=== PATIENT | male | born 1990 | race Two or more races ===

== ENCOUNTER 2019-10-18 12:31 | Emergency (ER) | payer MEDICAID ==
[~2019-10-18] VITALS: Ht 175.3 cm; Wt 99.8 kg
--- NOTE | 2019-10-18 12:56 | NUR ---
BIBS TO ER BED 6. AAOX4. NOT IN RESP DISTRESS, BREATHING EVEN AND UNLABORED. AMBULATORY. CAME IN FOR BLOOD IN THE STOOL X 3 DAYS AND VOMMITING SATARTED TODAY. PER PT, HE STARTED NOTICING THE BLOOD WHEN HE WAS WIPPING AFTER HE HAVE BM. BLOOD IS BRIGHT RED. ACCORING TO PT, HE HASNT HAD A BM TODAY THUS HAVENT NOTED ANY BLOOD TODAY. HE REPORTS NAUSEA AND VOMMITING STARTED TODAY. PT APEARS ANXIOUS. MD WAS AT BEDSIDE FOR EVAL. ORDERS RECEIVED NOTED AND CARRIED OUT. PATIENT ADMITTING CLERK WAS AT BEDSIDE FOR BLOOD DRAW.
[2019-10-18 13:02] LABS: BASOPHILS % (AUTO) 0.4 % (0.0-2.0); EOSINOPHILS % (AUTO) 0.7 % (0.0-6.0); HEMATOCRIT 48 % (39-51); LYMPHOCYTES # (AUTO) 1.5 /CMM (0.8-4.8); LYMPHOCYTES % (AUTO) 16.4 % (20.0-44.0); MEAN CORPUSCULAR HGB CONC 35 g/dl (31.0-36.0); MEAN CORPUSCULAR VOLUME 91 fL (80-96); MONOCYTES # (AUTO) 0.9 /CMM (0.1-1.30); MONOCYTES % (AUTO) 9.4 % (2.0-12.0); NEUTROPHILS # (AUTO) 6.6 /CMM (1.8-8.9); NEUTROPHILS % (AUTO) 73.1 % (43.0-81.0); PLATELET COUNT (AUTO) 265 /CMM (150-450); RED BLOOD CELL COUNT(AUTO) 5.32 MIL/uL (4.5-6.0)
[2019-10-18 13:09] LABS: CALCIUM, SERUM 9.3 mg/dL (8.5-10.1); POTASSIUM 3.6 mmol/L (3.5-5.1)
[2019-10-18 13:15] LABS: BILIRUBIN,DIRECT 0.1 mg/dL (0.0-0.2); BILIRUBIN,TOTAL 0.7 mg/dL (0.2-1.0); TOTAL PROTEIN, SERUM 7.4 g/dL (6.4-8.2)
--- NOTE | 2019-10-18 14:25 | NUR ---
Patient discharged to home in stable condition. Written and verbal after care instructions given. Patient verbalizes understanding of instruction. Pt ambulatory with a steady gait
[2019-10-18 14:28] VITALS: BP 137/92
== END 2019-10-18 14:28 | disposition home or self-care (01) ==
LOC: ER 12:35
DX: K64.8 Other hemorrhoids (principal); K29.60 Other gastritis without bleeding; R11.2 Nausea with vomiting, unspecified; J45.909 Unspecified asthma, uncomplicated; F90.9 Attention-deficit hyperactivity disorder, unspecified type; F31.9 Bipolar disorder, unspecified
CPT/HCPCS: 36415; 80048-TC; 80076-TC; 85025-TC

== ENCOUNTER 2019-11-01 13:51 | Emergency (ER) | payer MEDICAID ==
[~2019-11-01] VITALS: Ht 177.8 cm; Wt 102.1 kg
--- NOTE | 2019-11-01 14:02 | NUR ---
CAME IN FOR R SIDED, LOWER BACK PAIN S/P GLF 2 DAYS AGO. TO ER BED 10, HOOKED TO MONITOR, CHANGED TO HOSP GOWN, WARM BLANKET PROVIDED, PATIENT AAO x 4, BREATHING EVEN AND UNLABORED, AWAITING MD PATEL.
--- NOTE | 2019-11-01 14:18 | NUR ---
DR VARGAS AT BEDSIDE
[2019-11-01 15:14] VITALS: BP 141/89
--- NOTE | 2019-11-01 15:14 | NUR ---
Patient discharged to home in stable condition. Written and verbal after care instructions given. Patient verbalizes understanding of instruction.
== END 2019-11-01 15:15 | disposition home or self-care (01) ==
LOC: ER 13:58
DX: S23.3XXA Sprain of ligaments of thoracic spine, initial encounter (principal); J45.909 Unspecified asthma, uncomplicated; W01.198A Fall on same level from slipping, tripping and stumbling with subsequent striking against other object, initial encounter; Y93.89 Activity, other specified; Y92.091 Bathroom in other non-institutional residence as the place of occurrence of the external cause; Y99.8 Other external cause status
CPT/HCPCS: 71100-TC

== ENCOUNTER 2019-12-10 11:58 | Emergency (ER) | payer SELFPAY ==
[~2019-12-10] VITALS: Ht 175.3 cm; Wt 104.3 kg
[2019-12-10] MEDS ORDERED: KETOROLAC TROMETHAMINE 15 MG/ML VIAL ONE (12:36)
[2019-12-10] MEDS ORDERED: ONDANSETRON HCL/PF 4 MG/2 ML VIAL ONE (12:36)
[2019-12-10 12:47] LABS: BASOPHILS % (AUTO) 0.5 % (0.0-2.0); EOSINOPHILS % (AUTO) 2.2 % (0.0-6.0); HEMATOCRIT 48 % (39-51); HEMOGLOBIN 16.2 g/dL (13.5-17.5); LYMPHOCYTES # (AUTO) 2.2 /CMM (0.8-4.8); LYMPHOCYTES % (AUTO) 24.1 % (20.0-44.0); MEAN CORPUSCULAR HGB CONC 34 g/dl (31.0-36.0); MEAN CORPUSCULAR VOLUME 93 fL (80-96); MONOCYTES # (AUTO) 0.9 /CMM (0.1-1.30); MONOCYTES % (AUTO) 9.4 % (2.0-12.0); NEUTROPHILS # (AUTO) 5.9 /CMM (1.8-8.9); NEUTROPHILS % (AUTO) 63.8 % (43.0-81.0); PLATELET COUNT (AUTO) 271 /CMM (150-450); WHITE BLOOD COUNT (AUTO) 9.2 K/uL (4.3-11.0)
--- NOTE | 2019-12-10 12:52 | NUR ---
BIBS FROM HOME TO ER BED 12. AAOX4. NOT IN RESP DISTRESS. AMBULATORY. CAME IN FOR ABDOMINAL CRAMPING, VOMMITING, WATTERY DIARRHEA AND NAUSEA X 2 DAYS. MD WAS AT THE BEDSIDE FOR EVAL. ORDERS RECEIVED NOTED AND CARRIED OUT. IV LINE OBTAINED ON R AC 18G. BLOOD DRAWN AND GIVEN TO PERSONNEL TECHNICIAN AT BEDSIDE. URINE COOLECTED AND SENT TO LAB
[2019-12-10 12:54] LABS: CALCIUM, SERUM 8.9 mg/dL (8.5-10.1); CREATININE 0.9 mg/dL (0.6-1.3); POTASSIUM 4.2 mmol/L (3.5-5.1)
[2019-12-10 12:59] LABS: BILIRUBIN,DIRECT 0.2 mg/dL (0.0-0.2); BILIRUBIN,TOTAL 0.6 mg/dL (0.2-1.0); TOTAL PROTEIN, SERUM 7.2 g/dL (6.4-8.2)
[2019-12-10] MEDS ORDERED: KETOROLAC TROMETHAMINE INJ 30 MG/ML VIAL IV ONE (13:00)
[2019-12-10] MEDS ORDERED: ONDANSETRON HCL/PF 4 MG/2 ML VIAL IVP ONE (13:00)
[2019-12-10] MEDS ORDERED: IV NS 0.9% 1,000 ML BAG IV ONE (13:00)
[2019-12-10 13:07] LABS: APPEARANCE,URINE Clear (CLEAR); BILIRUBIN,URINE SMALL (NEGATIVE); BLOOD, URINE Negative Ery/uL (NEGATIVE); COLOR,URINE Yellow (YELLOW); KETONES,URINE Negative (NEGATIVE); LEUKOCYTE ESTERASE ,URINE Negative (NEGATIVE); NITRITE, URINE Negative (NEGATIVE); PH,URINE 8.5 (5.0-8.0); PROTEIN,URINE Trace mg/dl (NEGATIVE); UGLUCOSE Negative (NEGATIVE)
[2019-12-10 13:08] LABS: BACTERIA,URINE None seen /HPF (None Seen); RBC,URINE 0-2 /HPF (0-2); SQUAMOUS EPITHELIAL CELL,UR None Seen /HPF (None Seen); WBC,URINE 0-2 /HPF (0-3)
[2019-12-10 13:09] LABS: HYALINE CASTS, URINE Few /LPF (None Seen)
[2019-12-10 15:46] VITALS: BP 112/75
--- NOTE | 2019-12-10 15:46 | NUR ---
Patient discharged to home in stable condition. Written and verbal after care instructions given. Patient verbalizes understanding of instruction.IV removed. Catheter intact and site benign. Pressure and 4x4 applied to site. No bleeding noted. Pt ambulatory with a steady gait
== END 2019-12-10 15:47 | disposition home or self-care (01) ==
LOC: ER 12:06
DX: R10.84 Generalized abdominal pain (principal); R16.2 Hepatomegaly with splenomegaly, not elsewhere classified; R11.2 Nausea with vomiting, unspecified; R19.7 Diarrhea, unspecified; J45.909 Unspecified asthma, uncomplicated; F90.9 Attention-deficit hyperactivity disorder, unspecified type; F31.9 Bipolar disorder, unspecified
CPT/HCPCS: 36415; 74176; 80048; 80076; 81001; 83690; 85025; 96361; 96374; 96375; 99284; J1885; J2405; J7030; 81000-TC

== ENCOUNTER 2020-11-17 01:23 | Emergency (ER) | payer MEDICAID, OTHER ==
[~2020-11-17] VITALS: Ht 175.3 cm; Wt 108.9 kg
[2020-11-17 01:58] VITALS: BP 131/79
[2020-11-17] MEDS ORDERED: LINA145C PO (02:21)
[2020-11-17] MEDS ORDERED: GLIM1TAB18 PO (02:21)
[2020-11-17] MEDS ORDERED: ASPI-1169 PO (02:21)
[2020-11-17] MEDS ORDERED: OMEP20CA15 PO (02:21)
[2020-11-17] MEDS ORDERED: DICY10SO PO (02:21)
[2020-11-17] MEDS ORDERED: LOSA100T31 PO (02:21)
[2020-11-17] MEDS ORDERED: FENO160T PO (02:21)
[2020-11-17] MEDS ORDERED: METO50TA16 PO (02:21)
[2020-11-17] MEDS ORDERED: DICY10CA13 PO (02:21)
[2020-11-17] MEDS ORDERED: AMOX875T2 PO (02:35)
== END 2020-11-17 02:54 | disposition home or self-care (01) ==
LOC: ER 01:31
DX: K08.89 Other specified disorders of teeth and supporting structures (principal); J45.909 Unspecified asthma, uncomplicated; F31.9 Bipolar disorder, unspecified; F90.9 Attention-deficit hyperactivity disorder, unspecified type; Z79.899 Other long term (current) drug therapy; Z79.82 Long term (current) use of aspirin

== ENCOUNTER 2022-07-07 00:56 | Emergency (ER) | payer OTHER ==
[~2022-07-07] VITALS: Ht 172.7 cm; Wt 68.0 kg
[~2022-07-07 00:56] MED LIST: AMOX875T2 PO; ASPI-1169 PO; DICY10CA13 PO; DICY10SO PO; FENO160T PO; GLIM1TAB18 PO; LINA145C PO; LOSA100T31 PO; METO50TA16 PO; OMEP20CA15 PO
--- NOTE | 2022-07-07 01:30 | NUR ---
SHIRLEY FROM HOME C/O RASH TO UPPER EXTREMITIES AND NECK X1 WEEK. TOOK BENADRYL BUT WITH NO RELIEF. PATIENT IS AAOX4. ABLE TO MAKE NEEDS KNOWN. PLACED COMFORTABLY IN BED. VITALS CHECKED.
[2022-07-07 01:33] VITALS: BP 137/77
--- NOTE | 2022-07-07 01:43 | NUR ---
SEEN BY DR BLAIR AT BEDSIDE
[2022-07-07] MEDS ORDERED: KETO30CR TOP (01:45)
--- NOTE | 2022-07-07 01:55 | NUR ---
Patient discharged to home in stable condition. Written and verbal after care instructions given. Patient verbalizes understanding of instruction.
== END 2022-07-07 02:09 | disposition home or self-care (01) ==
LOC: ER 00:58
DX: B36.0 Pityriasis versicolor (principal); L40.9 Psoriasis, unspecified; J45.909 Unspecified asthma, uncomplicated; F31.9 Bipolar disorder, unspecified; Z79.899 Other long term (current) drug therapy

== ENCOUNTER 2022-08-04 20:36 | Emergency (ER) | payer OTHER ==
[~2022-08-04] VITALS: Ht 172.7 cm; Wt 99.8 kg
[~2022-08-04 20:36] MED LIST changes: +KETO30CR TOP
--- NOTE | 2022-08-04 21:15 | NUR ---
BIBSELF C/O RIGHT SIDE MOUTH SWELLING X 1 DAY. PATIENT HAS IMPACTED WISDOM TOOTH ON THE RIGHT UPPER SIDE. HE HAS A DENTAL APPT ON 08/11/22. +ULCERS INSIDE IN MUCOSAL AREA
--- NOTE | 2022-08-04 21:18 | NUR ---
SEEN AND EXAMINED BY
[2022-08-04] MEDS ORDERED: TRAM-351 PO (21:29)
[2022-08-04] MEDS ORDERED: AMOX-430 PO (21:29)
[2022-08-04] MEDS ORDERED: KETO10TA2 PO (21:29)
[2022-08-04] MEDS ORDERED: TRAMADOL HCL 50 MG TABLET PO ONE (21:30)
[2022-08-04] MEDS ORDERED: KETOROLAC TROMETHAMINE INJ 30 MG/ML VIAL IM ONE (21:30)
[2022-08-04] MEDS ORDERED: KETOROLAC TROMETHAMINE INJ 30 MG/ML VIAL ONE (21:40)
[2022-08-04] MEDS ORDERED: TRAMADOL HCL 50 MG TABLET ONE (21:40)
[2022-08-04 21:48] VITALS: BP 125/88
--- NOTE | 2022-08-04 21:48 | NUR ---
Patient discharged to home in stable condition. Written and verbal after care instructions given. Patient verbalizes understanding of instruction.
== END 2022-08-04 21:48 | disposition home or self-care (01) ==
LOC: ER 20:38
DX: K08.89 Other specified disorders of teeth and supporting structures (principal); J45.909 Unspecified asthma, uncomplicated; F31.9 Bipolar disorder, unspecified; Z60.2 Problems related to living alone; Z79.899 Other long term (current) drug therapy
CPT/HCPCS: 99283; 96372; J1885

== ENCOUNTER 2023-08-27 20:23 | Emergency (ER) | payer MEDICAID, OTHER ==
[~2023-08-27] VITALS: Ht 177.8 cm; Wt 97.5 kg
[~2023-08-27 20:23] MED LIST changes: +AMOX-430 PO; +KETO10TA2 PO; +TRAM-351 PO
[2023-08-27 20:43] VITALS: BP 138/79; TEMP 98.3; O2SAT 98
[2023-08-27] MEDS ORDERED: NYST5ORA PO (23:09)
[2023-08-27] MEDS ORDERED: BENZ-13 PO (23:09)
== END 2023-08-27 23:17 | disposition home or self-care (01) ==
LOC: ER 20:29
DX: R05.9 Cough, unspecified (principal); B37.0 Candidal stomatitis; J45.909 Unspecified asthma, uncomplicated; F90.9 Attention-deficit hyperactivity disorder, unspecified type; F31.9 Bipolar disorder, unspecified; Z60.2 Problems related to living alone; Z20.822 Contact with and (suspected) exposure to COVID-19; Z91.018 Allergy to other foods
CPT/HCPCS: 86403-TC; 87070-TC

== ENCOUNTER 2024-07-23 18:16 | Emergency (ER) | payer MEDICAID, OTHER ==
[~2024-07-23] VITALS: Ht 175.3 cm; Wt 113.4 kg
[~2024-07-23 18:16] MED LIST changes: +BENZ-13 PO; +NYST5ORA PO
[2024-07-23] MEDS ORDERED: IOHEXOL-300 100 ML VIAL IV ONE (19:15)
[2024-07-23] MEDS ORDERED: CT SWABBABLE VALVE TRANS SET 1 EA INFUS.SET MC ONE (19:15)
[2024-07-23 19:22] LABS: CALCIUM, SERUM 9.2 mg/dL (8.5-10.1); POTASSIUM 4.2 mmol/L (3.5-5.1)
[2024-07-23 19:24] LABS: BASOPHILS # (AUTO) 0.1 K/uL (0.0-0.2); BASOPHILS % (AUTO) 0.6 % (0.0-2.0); EOSINOPHILS # (AUTO) 0.3 K/uL (0.0-0.7); EOSINOPHILS % (AUTO) 2.8 % (0.0-6.0); HEMATOCRIT 46 % (39-51); HEMOGLOBIN 15.7 g/dL (13.5-17.5); LYMPHOCYTES # (AUTO) 3.1 K/uL (0.8-4.8); LYMPHOCYTES % (AUTO) 28.6 % (20.0-44.0); MEAN CORPUSCULAR HEMOGLOBIN 31 PG (26.0-33.0); MEAN CORPUSCULAR HGB CONC 34 g/dl (31.0-36.0); MEAN CORPUSCULAR VOLUME 90 fL (80-96); MONOCYTES # (AUTO) 0.9 K/uL (0.1-1.30); NEUTROPHILS # (AUTO) 6.4 K/uL (1.8-8.9); PLATELET COUNT (AUTO) 315 K/uL (150-450); RED BLOOD CELL COUNT(AUTO) 5.05 MIL/uL (4.5-6.0); RED CELL DISTRIBUTION WIDTH 13.4 % (11.5-15.0); WHITE BLOOD COUNT (AUTO) 10.7 K/uL (4.3-11.0)
[2024-07-23] MEDS ORDERED: IBUP-1490 PO (21:01)
[2024-07-23 23:46] VITALS: BP 159/99; TEMP 98.3; O2SAT 98
== END 2024-07-23 23:46 | disposition home or self-care (01) ==
LOC: ER 18:18
DX: R07.89 Other chest pain (principal); R10.32 Left lower quadrant pain; R11.0 Nausea; M54.50 Low back pain, unspecified; F31.9 Bipolar disorder, unspecified; J45.909 Unspecified asthma, uncomplicated; Z79.82 Long term (current) use of aspirin; Z79.899 Other long term (current) drug therapy; V43.52XA Car driver injured in collision with other type car in traffic accident, initial encounter; Y93.89 Activity, other specified; Y92.488 Other paved roadways as the place of occurrence of the external cause; Y99.8 Other external cause status
CPT/HCPCS: 99285; 71260; 74177; 85025; 80048; 36415; Q9967